=== PATIENT | female | born 2000 | race Hispanic/Latino ===

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

== ENCOUNTER 2024-08-05 13:36 | Outpatient (CLI) | payer BC | END 2024-08-05 13:37 | disposition home or self-care (01) | LOC: BICULT 13:36 | PROVIDERS: ATTEND Physician Assistant | DX: N63.11 Unspecified lump in the right breast, upper outer quadrant (principal); K25.3 Acute gastric ulcer without hemorrhage or perforation; R53.82 Chronic fatigue, unspecified ==